=== PATIENT | male | born 1995 | race Caucasian/White ===

== ENCOUNTER 2017-08-13 11:25 | Emergency (ER) | payer BC ==
[2017-08-13] MEDS ORDERED: Ondansetron 4 MG Tab.DIS PO ONE (11:49)
[2017-08-13] MEDS ORDERED: Acetaminophen 325 MG Tab PO ONE (11:49)
--- NOTE | 2017-08-13 11:54 | EDM.PDOC ---
ED HPI GENERAL MEDICAL PROBLEM - General Chief Complaint: Respiratory Problem Stated Complaint: VOMITNG, AND FEVER Time Seen by Provider: 08/13/17 11:26 Source of Information: Reports: Patient History Limitations: Reports: No Limitations - History of Present Illness INITIAL COMMENTS - FREE TEXT/NARRATIVE: HISTORY AND PHYSICAL: History of present illness: Patient is a 22-year-old male who presents to the emergency room with complaints of subjective fever, vomiting, nausea, diarrhea and cough 4 days. States he thinks he has the flu. Reports having loose stools and vomiting at least hourly. States he is able to keep water down without any problem but when he drinks anything other than water "I vomited up". States it's "hit or miss" if he is able to keep food down over the past couple days. Has generalized abdominal pain, nontender with palpation. Denies any chest pain, shortness of breath, blood in his stools, dysuria, headache or visual changes. Has not taken any [id number] products. Has not had the [id number] influenza vaccine Review of systems: As per history of present illness and below otherwise all systems reviewed and negative. Past medical history: As per history of present illness and as reviewed below otherwise noncontributory. Surgical history: As per history of present illness and as reviewed below otherwise noncontributory. Social history: No reported history of drug or alcohol abuse. Family history: As per history of present illness and as reviewed below otherwise noncontributory. Physical exam: HEENT: Atraumatic, normocephalic, pupils reactive, negative for conjunctival pallor or scleral icterus, mucous membranes moist, throat clear, neck supple, nontender, trachea midline. Lungs: Clear to auscultation, breath sounds equal bilaterally, chest nontender. Heart: S1S2, regular, negative for clicks, rubs, or JVD. Abdomen: Soft, nondistended, nontender. Negative for masses or hepatosplenomegaly. Negative for costovertebral tenderness. Pelvis: Stable nontender. Genitourinary: Deferred. Rectal: Deferred. Extremities: Atraumatic, negative for cords or calf pain. Neurovascular unremarkable. Neuro: Awake, alert, oriented. Cranial nerves II through XII unremarkable. Cerebellum unremarkable. Motor and sensory unremarkable throughout. Exam nonfocal. 1130- I did offer the patient and IV with IV fluids and medications, he declined at this time. He is agreeable to labs and a chest x-ray. 1200- Nursing staff went into the room to do a strep and influenza swab, patient states he was diagnosed with strep throat 2 days ago. He failed to mention this to me during our initial interview. He was seen at [facility] and given Rocephin IM and placed on an oral antibiotic. He states that the symptoms were the same 2 days ago and have not changed. I encouraged him to get an IV for fluids and possible medications, he still declines at this time. Labs pending. 1245- Patient is now agreeable to receiving IV fluids. I did add on blood cultures and a lactic acid at this time. 1248- influenza came back positive. Patient was made aware of this result. He' ll receive the rest of his fluids and we will discuss discharge to home. Patient is requesting a work note for 48 hours. 1350- patient states he feels "better". He is anxious to be discharged to home. We discussed home care and what to monitor for over the next couple days. Due to a follow-up with the primary care provider in the next 1-2 days. We reviewed his prescriptions and how to take those. Patient voices understanding and is agreeable to plan of care. He denies any further questions at this time. Diagnostics: CBC, CMP, stool study, influenza, strep (cancelled) Therapeutics: Zoframandeep ST Impression: Influenza A Plan: 1. Please take the next couple days to rest at home. Take Tylenol and/or ibuprofen for pain and fever control. I would like you to take this every 6 hours for the next 2-3 days to stay on top of your fever. He has been even a small amount of promethazine and codeine for cough and pain management. Be aware that this medication is a narcotic and can cause drowsiness, do not take while driving or needing to be functioning at work. 2. As we discussed antibiotics do not treat influenza. But as you were diagnosed with strep throat, I do need to finish her antibiotics to treat that. He may do warm saltwater gargles 2-3 times daily. Make sure you get a new toothbrush once her antibiotics are completed. 3. [place] diet or food as tolerated. Make sure you're drinking plenty of fluids to prevent dehydration. I have given you a prescription for Zofran which is an anti-nausea medication, he may take this prior to eating to prevent vomiting. 4. Follow-up with your primary care provider in the next 1-2 days. Return to the ED as needed and as discussed. Definitive disposition and diagnosis as appropriate pending reevaluation and review of above. Duration: Day(s): Location: Reports: Generalized body aches Pain Score (Numeric/FACES): 7 - Related Data Allergies Allergy/AdvReac Type Severity Reaction Status Date / Time No Known Allergies Allergy Verified 08/13/17 11:51 Home Meds: Home Meds Amoxicillin 08/13/17 [History] ED ROS GENERAL - Review of Systems Review Of Systems: ROS reveals no pertinent complaints other than HPI. ED EXAM, GENERAL - Physical Exam Exam: See Below Course - Vital Signs Last Recorded V/S: Last Vital Signs Temp 37.8 C 08/13/17 11:52 Pulse 50 L 08/13/17 11:52 Resp 20 08/13/17 11:52 BP 132/62 08/13/17 11:52 Pulse Ox 99 08/13/17 11:52 - Orders/Labs/Meds Orders: Active Orders 24 hr Category Date Time Status Chest 2V [CR] Stat Exams 08/13/17 11:49 Taken CULTURE BLOOD [BC] Stat Lab 08/13/17 12:59 Received Blood Culture x2 Reflex Set [OM.PC] Stat Oth 08/13/17 12:46 Ordered Labs: Laboratory Tests 08/13/17 08/13/17 08/13/17 Range/Units 11:56 11:56 11:56 WBC 14.40 H (4.0-11.0) K/uL RBC 4.66 (4.50-5.90) M/uL Hgb 14.3 (13.0-17.0) g/dL Hct 40.7 (38.0-50.0) % MCV 87.3 (80.0-98.0) fL MCH 30.7 (27.0-32.0) pg MCHC 35.1 (31.0-37.0) g/dL RDW Std Deviation 41.2 (28.0-62.0) fl RDW Coeff of Jan 13 (11.0-15.0) % Plt Count 228 (150-400) K/uL MPV 11.20 (7.40-12.00) fL Neut % (Auto) 82.6 H (48.0-80.0) % Lymph % (Auto) 6.0 L (16.0-40.0) % [place] % (Auto) 9.2 (0.0-15.0) % Eos % (Auto) 1.9 (0.0-7.0) % Baso % (Auto) 0.3 (0.0-1.5) % Neut # (Auto) 11.9 H (1.4-5.7) K/uL Lymph # (Auto) 0.9 (0.6-2.4) K/uL [place] # (Auto) 1.3 H (0.0-0.8) K/uL Eos # (Auto) 0.3 (0.0-0.7) K/uL Baso # (Auto) 0.1 (0.0-0.1) K/uL Nucleated RBC % 0.0 /100WBC Nucleated RBCs # 0 K/uL Lactate (0.20-2.00) mmol/L Sodium 135 L (136-146) mmol/L Potassium 3.8 (3.5-5.1) mmol/L Chloride 100 (98-110) mmol/L Carbon Dioxide 24 (21-31) mmol/L BUN 10 (6.0-23.0) mg/dL Creatinine 0.8 (0.6-1.5) mg/dL Est Cr Clr Drug Dosing 152.08 mL/min Estimated GFR (MDRD) > 60.0 ml/min Glucose 86 (60-110) mg/dL Calcium 9.1 (8.8-10.8) mg/dL Total Bilirubin 0.5 (0.1-1.5) mg/dL AST 24 (5-40) IU/L ALT 55 H (8-54) IU/L Alkaline Phosphatase 81 (40-150) Total Protein 7.7 (6.0-8.0) g/dL Albumin 4.1 (3.5-5.0) g/dL Globulin 3.6 H (2.0-3.5) g/dL Albumin/Globulin Ratio 1.1 L (1.3-2.8) Monoscreen NEGATIVE (NEG) 08/13/17 Range/Units 12:58 WBC (4.0-11.0) K/uL RBC (4.50-5.90) M/uL Hgb (13.0-17.0) g/dL Hct (38.0-50.0) % MCV (80.0-98.0) fL MCH (27.0-32.0) pg MCHC (31.0-37.0) g/dL RDW Std Deviation (28.0-62.0) fl RDW Coeff of Jan (11.0-15.0) % Plt Count (150-400) K/uL MPV (7.40-12.00) fL Neut % (Auto) (48.0-80.0) % Lymph % (Auto) (16.0-40.0) % [place] % (Auto) (0.0-15.0) % Eos % (Auto) (0.0-7.0) % Baso % (Auto) (0.0-1.5) % Neut # (Auto) (1.4-5.7) K/uL Lymph # (Auto) (0.6-2.4) K/uL [place] # (Auto) (0.0-0.8) K/uL Eos # (Auto) (0.0-0.7) K/uL Baso # (Auto) (0.0-0.1) K/uL Nucleated RBC % /100WBC Nucleated RBCs # K/uL Lactate 0.8 (0.20-2.00) mmol/L Sodium (136-146) mmol/L Potassium (3.5-5.1) mmol/L Chloride (98-110) mmol/L Carbon Dioxide (21-31) mmol/L BUN (6.0-23.0) mg/dL Creatinine (0.6-1.5) mg/dL Est Cr Clr Drug Dosing mL/min Estimated GFR (MDRD) ml/min Glucose (60-110) mg/dL Calcium (8.8-10.8) mg/dL Total Bilirubin (0.1-1.5) mg/dL AST (5-40) IU/L ALT (8-54) IU/L Alkaline Phosphatase (40-150) Total Protein (6.0-8.0) g/dL Albumin (3.5-5.0) g/dL Globulin (2.0-3.5) g/dL Albumin/Globulin Ratio (1.3-2.8) Monoscreen (NEG) Meds: Medications Discontinued Medications Generic Name Dose Route Start Last Admin Trade Name Hafsa PRN Reason Stop Dose Admin Acetaminophen 650 mg 08/13/17 11:49 08/13/17 12:22 Tylenol PO 08/13/17 11:50 650 mg NOW ONE Administration Sodium Chloride 1,000 mls @ 999 mls/hr 08/13/17 12:46 08/13/17 12:57 Normal Saline IV 08/13/17 13:46 999 mls/hr STAT ONE Administration Ketorolac Tromethamine 30 mg 08/13/17 12:46 08/13/17 13:00 Toradol IVPUSH 08/13/17 12:47 30 mg ONETIME ONE Administration Ondansetron HCl 4 mg 08/13/17 11:49 08/13/17 12:22 Zofran Odt PO 08/13/17 11:50 4 mg ONETIME ONE Administration Departure - Departure Time of Disposition: 13:54 Disposition: Home, Self-Care 01 Clinical Impression: Influenza A - Discharge Information Referrals: PCP,None [Primary Care Provider] - Forms: ED Department Discharge Additional Instructions: My general discharge The following information is given to patients seen in the emergency department who are being discharged to home. This information is to outline your options for follow-up care. We provide all patients seen in our emergency department with a follow-up referral. The need for follow-up, as well as the timing and circumstances, are variable depending upon the specifics of your emergency department visit. If you don't have a primary care physician on staff, we will provide you with a referral. We always advise you to contact your personal physician following an emergency department visit to inform them of the circumstance of the visit and for follow-up with them and/or the need for any referrals to a consulting specialist. The emergency department will also refer you to a specialist when appropriate. This referral assures that you have the opportunity for follow-up care with a specialist. All of these measure are taken in an effort to provide you with optimal care, which includes your follow-up. Under all circumstances we always encourage you to contact your private physician who remains a resource for coordinating your care. When calling for follow-up care, please make the office aware that this follow-up is from your recent emergency room visit. If for any reason you are refused follow-up, please contact the [facility] Emergency Department at and asked to speak to the emergency department charge nurse. [facility] [address] [place] [id number] 1. Please take the next couple days to rest at home. Take Tylenol and/or ibuprofen for pain and fever control. I would like you to take this every 6 hours for the next 2-3 days to stay on top of your fever. He has been even a small amount of promethazine and codeine for cough and pain management. Be aware that this medication is a narcotic and can cause drowsiness, do not take while driving or needing to be functioning at work. 2. As we discussed antibiotics do not treat influenza. But as you were diagnosed with strep throat, I do need to finish her antibiotics to treat that. He may do warm saltwater gargles 2-3 times daily. Make sure you get a new toothbrush once her antibiotics are completed. 3. [place] diet or food as tolerated. Make sure you're drinking plenty of fluids to prevent dehydration. I have given you a prescription for Zofran which is an anti-nausea medication, he may take this prior to eating to prevent vomiting. 4. Follow-up with your primary care provider in the next 1-2 days. Return to the ED as needed and as discussed. - My Orders Last 24 Hours: My Active Orders 08/13/17 11:49 Chest 2V [CR] Stat 08/13/17 12:46 Blood Culture x2 Reflex Set [OM.PC] Stat 08/13/17 12:59 CULTURE BLOOD [BC] Stat - Assessment/Plan Last 24 Hours: My Active Orders 08/13/17 11:49 Chest 2V [CR] Stat 08/13/17 12:46 Blood Culture x2 Reflex Set [OM.PC] Stat 08/13/17 12:59 CULTURE BLOOD [BC] Stat
[2017-08-13 12:29] LABS: CHLORIDE,CL 100 mmol/L (98-110); SODIUM,NA 135 mmol/L (136-146)
[2017-08-13] MEDS ORDERED: Sodium Chloride 0.9% 1,000 ML IV ONE (12:46)
[2017-08-13] MEDS ORDERED: Ketorolac 30 MG/ML SDV IVPUSH ONE (12:46)
--- NOTE | 2017-08-14 16:01 | CR ---
EXAM DATE: 08/13/17 PATIENT'S AGE: 22 Patient: BECCA MOODY Facility: [place], [place] Site . Site : [id number] Study: XRay Chest [id number] 1:13:42 PM Ordering Physician: Doctor Farris Final Report: INDICATION: cough,fever TECHNIQUE: PA and lateral chest films are submitted. COMPARISON: None. FINDINGS: Heart size and pulmonary vasculature within normal limits. Lung hernandez are clear. IMPRESSION: No active disease. Dictated by Tre Beltran MD @ 08/13/2017 2:28:05 PM Dictated by: Tre Beltran MD @ 08/13/2017 14:28:17 (Electronic Signature) Report Signed by Proxy. [facility]
== END 2017-08-13 14:07 | disposition home or self-care (01) ==
LOC: MW.ED 11:25
DX: J10.1 Influenza due to other identified influenza virus with other respiratory manifestations (principal)
CPT/HCPCS: 36415; 71020; 80053; 83605; 85025; 86308; 87040; 87804; 96361; 96374; 99283; A9270; J1885; J7040; 99284